=== PATIENT | female | born 1980 | race Caucasian/White ===

== ENCOUNTER → 2020-11-02 | Outpatient (CLI) | payer BC, OTHER ==
[~2020-11-02] MED LIST: CAMILA0.35 MG PO; CYMBALTA60 MG PO; NORVASC5 MG PO; PANTOPRAZOLE SO40 MG PO; VITAMIN B12-FO1 EACH PO; VITAMIN D250000 UNIT PO
== END ==
LOC: CT 12:53
DX: K52.9 Noninfective gastroenteritis and colitis, unspecified (principal)
CPT/HCPCS: P9047; Q9967

== ENCOUNTER → 2022-05-06 | Outpatient (CLI) | payer BC | LOC: SLEEP 14:10 | DX: G47.33 Obstructive sleep apnea (adult) (pediatric) (principal); R06.83 Snoring | CPT/HCPCS: 95810 ==